=== PATIENT | female | born 1940 | race Caucasian/White ===

== ENCOUNTER 2016-11-22 21:43 | Emergency (ER) | payer MEDICARE, BC ==
[2016-11-22 21:54] VITALS: BP 146/64
--- NOTE | 2016-11-22 22:48 | EDM.PDOC ---
ED HPI GENERAL MEDICAL PROBLEM - General Chief Complaint: Fever Stated Complaint: HAD BACK SURGERY AND NOT FEELING WELL Time Seen by Provider: 11/22/16 21:46 Source of Information: Reports: Patient, Family History Limitations: Reports: No Limitations - History of Present Illness INITIAL COMMENTS - FREE TEXT/NARRATIVE: This is a 76-year-old female. On November 11 she had surgery on her lower back L5- S1 which she had decompression and fusion by Dr. Sosa. There is about a 4 cm laceration in her lower back from that surgery. Apparently that area has been oozing slightly over the last couple of days. This evening she had an episode of severe chilling that lasted approximately 30-40 minutes. Her fever went up to 102 orally. She comes to the ER for evaluation. He says that she's been having some soreness in her calves bilaterally but there's been no swelling and no redness. She also states she's been coughing slightly with some slight phlegm that has been noted. She has not been using a spirometer at home to keep her lungs open. She denies any sore throat she has some mild nausea but no vomiting. She has been eating fairly well. She has had no upper airway congestion. Back Pain Score (Numeric/FACES): 8 - Related Data Allergies Allergy/AdvReac Type Severity Reaction Status Date / Time Cephalosporins Allergy Hives Verified 12/11/15 10:47 Iodinated Contrast- Oral and Allergy Hives Verified 12/11/15 10:47 IV Dye [Iodinated Contrast Media - IV Dye] Home Meds: Home Meds Nortriptyline 25 mg PO BEDTIME 09/12/14 [History] Rosuvastatin [Crestor] 10 mg PO DAILY 09/12/14 [History] Gabapentin [Neurontin] 600 mg PO DAILY tablet 11/21/14 [Rx] Aspirin [Adult Low Dose Aspirin EC] 81 mg PO DAILY 12/11/15 [History] Linagliptin/Metformin Hcl [Jentadueto 2.5 mg-850 mg Tab] 1 tab PO DAILY [History] Losartan/Hydrochlorothiazide [Losartan-HCTZ 100-25 MG] 1 tab PO DAILY 12/11/15 [ History] Baclofen 10 mg PO BID PRN 11/22/16 [History] Celecoxib [CeleBREX] 200 mg PO DAILY 11/22/16 [History] Hydrocodone/Acetaminophen [Hydrocodon-Acetaminophn 10-325] 10 - 325 mg PO ASDIRECTED 11/22/16 [History] tiZANidine [Zanaflex] 4 mg PO ASDIRECTED PRN 11/22/16 [History] traMADol [Ultram] 50 mg PO Q6H PRN 11/22/16 [History] Past Medical History HEENT History: Reports: Allergic Rhinitis Cardiovascular History: Reports: High Cholesterol Gastrointestinal History: Reports: Irritable Bowel Syndrome Other Genitourinary History: bladder repair x 2 Other OB/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 6 VAGINAL BIRTHS, 1 MISCARRIAGE Musculoskeletal History: Reports: Arthritis Endocrine/Metabolic History: Reports: Diabetes, Type II Other Endocrine/Metabolic History: DM type 2 - takes metformin/litagliptin with good effect Checks bs 3 times weekly. On Thursday checks fasting bs, on Thursday before a meal and on Thursday checks 2 hours after a meal. - Past Surgical History HEENT Surgical History: Reports: Cataract Surgery, Tonsillectomy Other Neurological Surgeries/Procedures: HX OF NECK SURGERY; removed a benign nodule by Dr. Beth many years ago Musculoskeletal Surgical History: Reports: Arthroscopic Knee, Shoulder Replacement Social & Family History - Tobacco Use Smoking Status *Q: Never Smoker Second Hand Smoke Exposure: No - Caffeine Use Caffeine Use: Reports: Coffee, Tea - Alcohol Use Days Per Week of Alcohol Use: 1 Number of Drinks Per Day: 1 Total Drinks Per Week: 1 - Recreational Drug Use Recreational Drug Use: No Drug Use in Last 12 Months: No ED ROS GENERAL - Review of Systems Review Of Systems: See Below Constitutional: Reports: Fever, Chills HEENT: Reports: No Symptoms Respiratory: Reports: Shortness of Breath, Cough Cardiovascular: Denies: Chest Pain Endocrine: Reports: No Symptoms GI/Abdominal: Reports: Nausea. Denies: Abdominal Pain, Diarrhea, Vomiting : Reports: No Symptoms Musculoskeletal: Reports: Back Pain, Other (Also some mild drainage from the incision site, mild soreness of her calves bilaterally) Skin: Reports: Other (As per history of present illness) Neurological: Reports: No Symptoms Psychiatric: Reports: No Symptoms Hematologic/Lymphatic: Reports: No Symptoms ED EXAM, SEPSIS - Physical Exam Exam: See Below Exam Limited By: No Limitations General Appearance: Alert, WD/WN, No Apparent Distress Eye Exam: Bilateral Eye: Normal Inspection Ears: Normal External Exam, Normal Canal, Normal TMs Nose: Normal Inspection Throat/Mouth: Normal Inspection, Normal Lips, Normal Oropharynx, Normal Voice, No Airway Compromise Head: Atraumatic, Normocephalic Neck: Supple Respiratory/Chest: No Respiratory Distress, Lungs Clear, Normal Breath Sounds Cardiovascular: Regular Rate, Rhythm, No Murmur GI/Abdominal: Soft, Non-Tender Back: Other (She has limited range of motion due to the surgery, when I evaluate the incision site she is having copious drainage or serosanguineous old type fluid, there is some dehiscence of the incision site at the upper part and also the middle part and it's the upper part of his draining the fluid, the skin edges do not appear to be especially erythematous or red or swollen) Extremities: Normal Inspection, Normal Range of Motion, No Pedal Edema, Other ( She complains of soreness in her calves but no cord is felt there is no redness there is no swelling noted there is no thigh tenderness on palpation). No: Non- Tender Neurological: Alert, Oriented Psychiatric: Normal Affect, Normal Mood Skin: Warm, Dry Course - Vital Signs Last Recorded V/S: Last Vital Signs Temp 100.8 F H 11/22/16 21:53 Pulse 90 11/22/16 21:53 Resp 20 11/22/16 21:53 BP 146/64 H 11/22/16 21:53 Pulse Ox 96 11/22/16 21:53 - Orders/Labs/Meds Orders: Active Orders 24 hr Category Date Time Status Chest 2V [CR] Stat Exams 11/22/16 22:13 Taken CULTURE BLOOD [BC] Stat Lab 11/22/16 22:30 Received CULTURE BLOOD [BC] Stat Lab 11/22/16 22:37 Received CULTURE WOUND [RM] Stat Lab 11/22/16 22:10 Received UA W/MICROSCOPIC [URIN] Stat Lab 11/22/16 22:13 Ordered Clindamycin Phosphate [Cleocin] 900 mg Med 11/23/16 00:58 Ordered Sodium Chloride 0.9% [Normal Saline] 100 ml IV ONETIME Sodium Chloride 0.9% [Normal Saline] 1,000 ml Med 11/22/16 23:22 Active IV ONETIME Blood Culture x2 Reflex Set [OM.PC] Stat Oth 11/22/16 22:21 Ordered Medication Orders Sodium Chloride (Normal Saline) 1,000 mls @ 75 mls/hr IV ONETIME ONE Stop: 11/23/16 12:41 Last Admin: 11/22/16 23:27 Dose: 75 mls/hr Clindamycin Phosphate 900 mg/ (Sodium Chloride) 106 mls @ 100 mls/hr IV ONETIME ONE Stop: 11/23/16 02:01 Labs: Laboratory Tests 11/22/16 11/22/16 11/22/16 Range/Units 22:30 22:30 22:30 WBC 12.78 H (3.98-10.04) K/mm3 RBC 3.58 L (3.98-5.22) M/mm3 Hgb 11.0 L (11.2-15.7) gm/L Hct 33.2 L (34.1-44.9) % MCV 92.7 (79.4-94.8) fl MCH 30.7 (25.6-32.2) pg MCHC 33.1 (32.2-35.5) g/dl RDW Std Deviation 43.5 (36.4-46.3) fL Plt Count 244 (182-369) K/mm3 MPV 9.0 L (9.4-12.3) fl Neut % (Auto) 92.7 H (34.0-71.1) % Lymph % (Auto) 2.7 L (19.3-51.7) % [place] % (Auto) 3.7 L (4.7-12.5) % Eos % (Auto) 0.4 L (0.7-5.8) Baso % (Auto) 0.1 (0.1-1.2) % Neut # (Auto) 11.86 H (1.56-6.13) K/mm3 Lymph # (Auto) 0.34 L (1.18-3.74) K/mm3 [place] # (Auto) 0.47 H (0.24-0.36) K/mm3 Eos # (Auto) 0.05 (0.04-0.36) K/mm3 Baso # (Auto) 0.01 (0.01-0.08) K/mm3 Manual Slide Review Not Reportable Sodium 137 (136-145) mEq/L Potassium 4.2 (3.5-5.1) mEq/L Chloride 102 (98-107) mEq/L Carbon Dioxide 26 (21-32) mEq/L Anion Gap 13.2 (5-15) BUN 24 H (7-18) mg/dL Creatinine 0.9 (0.55-1.02) mg/dL Est Cr Clr Drug Dosing 43.99 mL/min Estimated GFR (MDRD) > 60 (>60) mL/min BUN/Creatinine Ratio 26.7 H (14-18) Glucose 127 H (83-115) mg/dL Lactic Acid 1.2 (0.4-2.0) mmol/L Calcium 8.8 (8.5-10.1) mg/dL Total Bilirubin 0.6 (0.2-1.0) mg/dL AST 15 (15-37) U/L ALT 31 (14-59) U/L Alkaline Phosphatase 78 (46-116) U/L C-Reactive Protein 1.5 H* (<1.0) mg/dL Total Protein 6.7 (6.4-8.2) g/dl Albumin 3.4 (3.4-5.0) g/dl Globulin 3.3 gm/dL Albumin/Globulin Ratio 1.0 (1-2) Meds: Medications Generic Name Dose Route Start Last Admin Trade Name Freq PRN Reason Stop Dose Admin Sodium Chloride 1,000 mls @ 75 mls/hr 11/22/16 23:22 11/22/16 23:27 Normal Saline IV 11/23/16 12:41 75 mls/hr ONETIME ONE Administration Clindamycin Phosphate 900 mg/ 106 mls @ 100 mls/hr 11/23/16 00:58 Sodium Chloride IV 11/23/16 02:01 ONETIME ONE Discontinued Medications Generic Name Dose Route Start Last Admin Trade Name Freq PRN Reason Stop Dose Admin Hydromorphone HCl 0.5 mg 11/22/16 23:21 11/22/16 23:27 Dilaudid IVPUSH 11/22/16 23:22 0.5 mg ONETIME ONE Administration - Radiology Interpretation Free Text/Narrative:: Chest x-ray did not show any acute infiltrates though she might have a smidgen of atelectasis in the left lower lobe - Re-Assessments/Exams Free Text/Narrative Re-Assessment/Exam: 11/23/16 00:59 I spoke to the patient and the family regarding the lab results. We will not get the cultures back for the next 48 hours from the wound as well as blood cultures 2. 11/23/16 01:[address] Sosa at [facility] in [place] and he agrees to accept the patient in transport to their facility for admission and further evaluation. 11/23/16 01:09 Since the patient is allergic to cephalosporins I will give her some clindamycin IV since we are have a wound culture as well as 2 blood cultures drawn. Departure - Departure Time of Disposition: 01:00 Disposition: DC/Tfer to [facility] 02 Condition: Fair Clinical Impression: Febrile illness, acute Infected surgical wound Qualifiers: Encounter type: initial encounter Qualified Code(s): T81.4XXA - Infection following a procedure, initial encounter Leukocytosis Qualifiers: Leukocytosis type: unspecified Qualified Code(s): D72.829 - Elevated white blood cell count, unspecified - Discharge Information Forms: ED Department Discharge Additional Instructions: I spoke to Dr. Sosa at [facility] regarding the patient and the postop wound infection. He agrees to accept the patient in transport to [facility] for admission and further evaluation. ED Communication - ED Communication Date/Time Date: 11/23/16 Time Called: 01:00 - Discussed Case With (1) Discussed Case With (1): Admitting Provider Person/s Notified (1): Selvin Sosa (He accepts the patient in transport) - My Orders Last 24 Hours: My Active Orders 11/22/16 22:10 CULTURE WOUND [RM] Stat 11/22/16 22:13 Chest 2V [CR] Stat UA W/MICROSCOPIC [URIN] Stat 11/22/16 22:21 Blood Culture x2 Reflex Set [OM.PC] Stat 11/22/16 22:30 CULTURE BLOOD [BC] Stat 11/22/16 22:37 CULTURE BLOOD [BC] Stat 11/22/16 23:22 Sodium Chloride 0.9% [Normal Saline] 1,000 ml IV ONETIME 11/23/16 00:58 Clindamycin Phosphate [Cleocin] 900 mg Sodium Chloride 0.9% [Normal Saline] 100 ml IV ONETIME - Assessment/Plan Last 24 Hours: My Active Orders 11/22/16 22:10 CULTURE WOUND [RM] Stat 11/22/16 22:13 Chest 2V [CR] Stat UA W/MICROSCOPIC [URIN] Stat 11/22/16 22:21 Blood Culture x2 Reflex Set [OM.PC] Stat 11/22/16 22:30 CULTURE BLOOD [BC] Stat 11/22/16 22:37 CULTURE BLOOD [BC] Stat 11/22/16 23:22 Sodium Chloride 0.9% [Normal Saline] 1,000 ml IV ONETIME 11/23/16 00:58 Clindamycin Phosphate [Cleocin] 900 mg Sodium Chloride 0.9% [Normal Saline] 100 ml IV ONETIME
[2016-11-22] MEDS ORDERED: HYDROmorphone 0.5 MG/0.5 ML Syringe IVPUSH ONE (23:21)
[2016-11-22] MEDS ORDERED: Sodium Chloride 0.9% 1,000 ML IV ONE (23:22)
[2016-11-23] MEDS ORDERED: Clindamycin Phosphate 900 MG in Sodium Chloride 0.9% 100 ML IV ONE (00:58)
[2016-11-23] MEDS ORDERED: HYDROmorphone 0.5 MG/0.5 ML Syringe ONE (01:21)
[2016-11-23] MEDS ORDERED: HYDROmorphone 0.5 MG/0.5 ML Syringe IVPUSH ONE (01:32)
--- NOTE | 2016-11-24 08:15 | CR ---
Chest: Two views of the chest were obtained. Comparison: Previous chest x-ray of 12/05/14. Heart size is mildly prominent. Slight tortuosity of the thoracic aorta is seen. Lungs are clear with no acute infiltrates. Left shoulder prosthesis is noted. Previous right shoulder surgery is noted. Mild scoliosis present within the spine with scattered degenerative change. Surgical clips are noted from prior cholecystectomy. Impression: 1. Heart size is slightly enlarged as an interval change from prior exam. 2. Other incidental findings. Nothing acute is appreciated. Diagnostic code #2
== END 2016-11-23 01:40 ==
LOC: JD.ED 21:43
DX: T81.4XXA Infection following a procedure, initial encounter (principal); D72.829 Elevated white blood cell count, unspecified; R50.9 Fever, unspecified; Z88.1 Allergy status to other antibiotic agents; Z91.041 Radiographic dye allergy status; Z79.82 Long term (current) use of aspirin; Z79.899 Other long term (current) drug therapy; Z98.49 Cataract extraction status, unspecified eye; Z98.890 Other specified postprocedural states; Z96.619 Presence of unspecified artificial shoulder joint
CPT/HCPCS: 36415; 71020; 80053; 81001; 83605; 85025; 86140; 87040; 87070; 87077; 87186; 96361; 96365; 96375; 96376; 99285; J1170; J7030; J7040; 99284

== ENCOUNTER 2017-01-05 21:46 | Emergency (ER) | payer MEDICARE, BC ==
--- NOTE | 2017-01-05 23:52 | EDM.PDOC ---
ED HPI GENERAL MEDICAL PROBLEM - General Chief Complaint: Fever Stated Complaint: FEVER Time Seen by Provider: 01/05/17 21:54 Source of Information: Reports: Patient, Family, RN Notes Reviewed History Limitations: Reports: No Limitations - History of Present Illness INITIAL COMMENTS - FREE TEXT/NARRATIVE: The patient states that she underwent L5-S1 discectomy and fusion on 11/11/[address] Sosa, at [facility]. She was discharged home, but had to return there for fever and weakness. She was found to have a postoperative infection. She subsequently underwent surgical department and repair of a dural tear on 11/23/2016, 11/24/2016, 12/09/2016, 12/13/2016, 12/16/2016, 12/19/2016, and 2016. She was discharged home this past 01/03/2017. She has subsequently received ertapenem 1 g Q24 hrs and daptomycin 400 mg Q24 hrs via a right upper extremity PICC line on 01/04/2017, and today, 01/05/2017, as directed by Drs. Wilson and Lorie, Infectious Disease at [facility]. The patient states that she developed difficulty walking due to generalized weakness, and chills today. She has been running a fever, to a Tmax of 102.2 at 21:00 tonight. Her back hurts more today than it has recently. These are similar symptoms that put her back in the hospital following her original surgery. No nausea, vomiting, constipation, diarrhea, urinary symptoms, or cough. No headache. Back Pain Score (Numeric/FACES): 6 - Related Data Allergies Allergy/AdvReac Type Severity Reaction Status Date / Time adhesive Allergy Blisters Verified 01/05/17 22:10 Cephalosporins Allergy Hives Verified 12/11/15 10:47 Iodinated Contrast- Oral and Allergy Hives Verified 12/11/15 10:47 IV Dye [Iodinated Contrast Media - IV Dye] Home Meds: Home Meds Nortriptyline 25 mg PO BEDTIME 09/12/14 [History] Rosuvastatin [Crestor] 10 mg PO BEDTIME 09/12/14 [History] Aspirin [Adult Low Dose Aspirin EC] 81 mg PO DAILY 12/11/15 [History] Celecoxib [CeleBREX] 200 mg PO BID 11/22/16 [History] Hydrocodone/Acetaminophen [Hydrocodon-Acetaminophn 10-325] 10 - 325 mg PO ASDIRECTED 11/22/16 [History] tiZANidine [Zanaflex] 4 mg PO Q12HR PRN 11/22/16 [History] traMADol [Ultram] 50 mg PO Q6H PRN 11/22/16 [History] Cholecalciferol (Vitamin D3) [Vitamin D3] 10,000 unit PO DAILY 12/05/16 [History ] Ciprofloxacin HCl 750 mg PO BID 12/05/16 [History] Docusate Sodium [Colace] 100 mg PO DAILY 12/05/16 [History] Ertapenem [INVanz] 1 gm IV DAILY 12/05/16 [History] Gabapentin [Neurontin] 200 mg PO Q8HR 12/05/16 [History] Sennosides [Senna] 8.6 mg PO BID 12/05/16 [History] Vitamin B Complex [B Complex] 1 each PO DAILY 12/05/16 [History] Past Medical History HEENT History: Reports: Allergic Rhinitis Cardiovascular History: Reports: High Cholesterol, Hypertension [employer] History: Reports: : 7 Para: 6 Musculoskeletal History: Reports: Osteoarthritis Endocrine/Metabolic History: Reports: Diabetes, Type II - Past Surgical History HEENT Surgical History: Reports: Cataract Surgery, Tonsillectomy GI Surgical History: Reports: Appendectomy, Cholecystectomy Female Surgical History: Reports: Hysterectomy, Salpingo-Oophorectomy, Other (See Below) (Bladder suspension) Neurological Surgical History: Reports: Lumbar Spine (L5-S1 discectomy and fusion 11/11/2016, with 7 subsequent surgical debridements and repair of dural tear), Other (See Below) (Benign nodule excised from neck) Musculoskeletal Surgical History: Reports: Arthroscopic Knee, Shoulder Replacement, Shoulder Surgery (3 right rotator cuff repairs, 1 left rotator cuff repair + shoulder replacement) Social & Family History - Tobacco Use Smoking Status *Q: Never Smoker Second Hand Smoke Exposure: No - Caffeine Use Caffeine Use: Reports: Coffee - Alcohol Use Alcohol Use History: Yes Days Per Week of Alcohol Use: 1 Number of Drinks Per Day: 1 Total Drinks Per Week: 1 Alcohol Use Frequency: Rarely - Recreational Drug Use Recreational Drug Use: No - Living Situation & Occupation Living situation: Reports: , with Spouse Occupation: Retired ED ROS GENERAL - Review of Systems Review Of Systems: See Below Constitutional: Reports: No Symptoms HEENT: Reports: No Symptoms Respiratory: Reports: No Symptoms Cardiovascular: Reports: No Symptoms Endocrine: Reports: No Symptoms GI/Abdominal: Reports: No Symptoms : Reports: No Symptoms Musculoskeletal: Reports: No Symptoms Skin: Reports: No Symptoms Neurological: Reports: No Symptoms Psychiatric: Reports: No Symptoms Hematologic/Lymphatic: Reports: No Symptoms Immunologic: Reports: No Symptoms ED EXAM, GENERAL - Physical Exam Exam: See Below Exam Limited By: No Limitations General Appearance: Alert, WD/WN, No Apparent Distress Eye Exam: Bilateral Eye: Normal Inspection Ears: Normal External Exam, Hearing Grossly Normal Nose: Normal Inspection, No Blood Throat/Mouth: Normal Inspection, Normal Lips, Normal Voice, No Airway Compromise Head: Atraumatic, Normocephalic Neck: Normal Inspection, Full Range of Motion Respiratory/Chest: No Respiratory Distress, Lungs Clear, Normal Breath Sounds, No Accessory Muscle Use Cardiovascular: Normal Peripheral Pulses, Regular Rate, Rhythm, No Gallop, No JVD, No Murmur, No Rub Peripheral Pulses: 4+: Radial (L), Radial (R) GI/Abdominal: Normal Bowel Sounds, Soft, Non-Tender, No Organomegaly, No Distention, No Abnormal Bruit, No Mass (Female) Exam: Deferred Rectal (Female) Exam: Deferred Back Exam: Other (Lumbar surgical wound appears to be clean, dry, and intact. The patient has limited flexibility of the back, due to pain.) Extremities: Normal Inspection, Normal Range of Motion, No Pedal Edema, Normal Capillary Refill Neurological: Alert, Oriented, Normal Cognition, No Motor/Sensory Deficits Psychiatric: Normal Affect Skin Exam: Warm, Dry, Intact, Normal Color, No Rash Lymphatic: No Adenopathy Course - Vital Signs Last Recorded V/S: Last Vital Signs Temp 37.5 C 01/05/17 21:55 Pulse 98 01/05/17 21:55 Resp 19 01/05/17 21:55 BP 163/66 H 01/05/17 21:55 Pulse Ox 96 01/05/17 21:55 - Orders/Labs/Meds Orders: Active Orders 24 hr Category Date Time Status CBC WITH MANUAL DIFF [HEME] Stat Lab 01/05/17 23:10 Results COMPREHENSIVE METABOLIC PN,CMP [CHEM] Stat Lab 01/05/17 23:10 Received CULTURE BLOOD [BC] Stat Lab 01/05/17 23:10 Received CULTURE BLOOD [BC] Stat Lab 01/05/17 23:20 Received Blood Culture x2 Reflex Set [OM.PC] Stat Oth 01/05/17 22:37 Ordered Labs: Laboratory Tests 01/05/17 Range/Units 23:10 WBC 10.11 H (3.98-10.04) K/mm3 RBC 2.79 L (3.98-5.22) M/mm3 Hgb 7.6 L (11.2-15.7) gm/L Hct 24.3 L (34.1-44.9) % MCV 87.1 (79.4-94.8) fl MCH 27.2 (25.6-32.2) pg MCHC 31.3 L (32.2-35.5) g/dl RDW Std Deviation 48.0 H (36.4-46.3) fL Plt Count 429 H (182-369) K/mm3 MPV 8.6 L (9.4-12.3) fl - Re-Assessments/Exams Free Text/Narrative Re-Assessment/Exam: 01/05/17 23:[address] Payan, Hospitalist at [facility], at 23:30. Dr. East from Orthoopedic Surgery later joined the conference call. Dr. Payan accepts the patient for transfer to their facility. The patient's family would prefer to go by private vehicle; I have no objection. We will fax the CBC and CMP results once available. Departure - Departure Time of Disposition: 23:53 Disposition: DC/Tfer to Acute Hospital 02 Condition: Fair Clinical Impression: Postoperative fever - Discharge Information - My Orders Last 24 Hours: My Active Orders 01/05/17 22:37 Blood Culture x2 Reflex Set [OM.PC] Stat 01/05/17 23:10 CBC WITH MANUAL DIFF [HEME] Stat COMPREHENSIVE METABOLIC PN,CMP [CHEM] Stat CULTURE BLOOD [BC] Stat 01/05/17 23:20 CULTURE BLOOD [BC] Stat - Assessment/Plan Last 24 Hours: My Active Orders 01/05/17 22:37 Blood Culture x2 Reflex Set [OM.PC] Stat 01/05/17 23:10 CBC WITH MANUAL DIFF [HEME] Stat COMPREHENSIVE METABOLIC PN,CMP [CHEM] Stat CULTURE BLOOD [BC] Stat 01/05/17 23:20 CULTURE BLOOD [BC] Stat
[2017-01-06 00:23] VITALS: BP 146/76
== END 2017-01-06 00:40 ==
LOC: JD.ED 21:46
DX: R50.82 Postprocedural fever (principal); E78.00 Pure hypercholesterolemia, unspecified; I10 Essential (primary) hypertension; E11.9 Type 2 diabetes mellitus without complications; M19.90 Unspecified osteoarthritis, unspecified site; Z98.890 Other specified postprocedural states; Z91.041 Radiographic dye allergy status; Z91.048 Other nonmedicinal substance allergy status; Z79.899 Other long term (current) drug therapy; Z79.82 Long term (current) use of aspirin; Z90.49 Acquired absence of other specified parts of digestive tract; Z98.49 Cataract extraction status, unspecified eye; Z90.710 Acquired absence of both cervix and uterus
CPT/HCPCS: 36415; 80053; 85025; 87040; 99284; 99285

== ENCOUNTER 2019-03-29 13:56 | Emergency (ER) | payer MEDICARE, OTHER ==
[2019-03-29 14:08] VITALS: BP 156/61; PULSE 92
--- NOTE | 2019-03-29 14:13 | EDM.PDOC ---
ED HPI GENERAL MEDICAL PROBLEM - General Source of Information: Reports: Patient History Limitations: Reports: No Limitations - History of Present Illness Onset: Today, Sudden Onset Date: 03/29/19 Onset Time: 09:00 <Jing Silver - Last Filed: 03/29/19 14:39> - General Source of Information: Reports: Patient History Limitations: Reports: No Limitations Left Wrist Pain Score (Numeric/FACES): 4 <MaydaEhsan Hogan - Last Filed: 03/29/19 14:47> - General Chief Complaint: Trauma Stated Complaint: L ARM INJURY Time Seen by Provider: 03/29/19 14:06 - History of Present Illness INITIAL COMMENTS - FREE TEXT/NARRATIVE: Patient is a 78-year-old female who presents with left wrist pain and swelling after having a ground-level fall in her garage this morning at approximately 0900. She does have full range of motion of the wrist, however, movement and gripping causes shooting pains up her forearm. She states that she did also hit the right side of her head on the floor, however she states that she " barely tapped it on the floor". She denies any headache, nausea, loss of consciousness or confusion. She does take a daily baby aspirin. (Jing Silver) - Related Data Allergies Allergy/AdvReac Type Severity Reaction Status Date / Time adhesive Allergy Blisters Verified 03/29/19 14:08 Cephalosporins Allergy Hives Verified 03/29/19 14:08 Iodinated Contrast Media Allergy Hives Verified 03/29/19 14:08 [Iodinated Contrast Media - IV Dye] Home Meds: Home Meds Nortriptyline 25 mg PO BEDTIME 09/12/14 [History] Rosuvastatin [Crestor] 10 mg PO BEDTIME 09/12/14 [History] Aspirin [Adult Low Dose Aspirin EC] 81 mg PO DAILY 12/11/15 [History] Cholecalciferol (Vitamin D3) [Vitamin D3] 10,000 unit PO DAILY 12/05/16 [History ] Gabapentin [Neurontin] 200 mg PO Q8HR 12/05/16 [History] Losartan [Cozaar] 0 mg PO DAILY 03/29/19 [History] Past Medical History HEENT History: Reports: Allergic Rhinitis Cardiovascular History: Reports: High Cholesterol, Hypertension Gastrointestinal History: Reports: Irritable Bowel Syndrome Other Genitourinary History: bladder repair x 2 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 6 VAGINAL BIRTHS, 1 MISCARRIAGE Musculoskeletal History: Reports: Osteoarthritis Endocrine/Metabolic History: Reports: Diabetes, Type II Other Endocrine/Metabolic History: DM type 2 - takes metformin/litagliptin with good effect Checks bs 3 times weekly. On Thursday checks fasting bs, on Thursday before a meal and on Thursday checks 2 hours after a meal. - Past Surgical History HEENT Surgical History: Reports: Cataract Surgery, Tonsillectomy GI Surgical History: Reports: Appendectomy, Cholecystectomy Female Surgical History: Reports: Hysterectomy, Salpingo-Oophorectomy, Other (See Below) (Bladder suspension) Neurological Surgical History: Reports: Lumbar Spine (L5-S1 discectomy and fusion 11/11/2016, with 7 subsequent surgical debridements and repair of dural tear), Other (See Below) (Benign nodule excised from neck) Musculoskeletal Surgical History: Reports: Arthroscopic Knee, Shoulder Replacement, Shoulder Surgery (3 right rotator cuff repairs, 1 left rotator cuff repair + shoulder replacement) <Ehsan Ohara - Last Filed: 03/29/19 14:47> Social & Family History - Tobacco Use Smoking Status *Q: Never Smoker - Caffeine Use Caffeine Use: Reports: Coffee - Recreational Drug Use Recreational Drug Use: No - Living Situation & Occupation Living situation: Reports: , with Spouse Occupation: Retired <Ehsan Ohara - Last Filed: 03/29/19 14:47> Review of Systems - Review of Systems Review Of Systems: See Below Constitutional: Reports: No Symptoms Eyes: Reports: No Symptoms. Denies: Blurred Vision, Vision Change Ears: Reports: No Symptoms Nose: Reports: No Symptoms Mouth/Throat: Reports: No Symptoms Respiratory: Reports: No Symptoms Cardiovascular: Reports: No Symptoms GI/Abdominal: Reports: No Symptoms Genitourinary: Reports: No Symptoms Musculoskeletal: Reports: Other (left wrist pain and swelling) Skin: Reports: No Symptoms Neurological: Reports: No Symptoms. Denies: Confusion, Dizziness, Headache, Syncope, Difficulty Walking, Weakness Psychiatric: Reports: No Symptoms. Denies: Confusion <Jing Silver - Last Filed: 03/29/19 14:39> ED EXAM, GENERAL - Physical Exam Exam: See Below Exam Limited By: No Limitations General Appearance: Alert, No Apparent Distress Eye Exam: Bilateral Eye: PERRL Head: Atraumatic, Normocephalic Respiratory/Chest: No Respiratory Distress, Lungs Clear, Normal Breath Sounds Cardiovascular: Normal Peripheral Pulses, Regular Rate, Rhythm, No Edema Extremities: Normal Range of Motion, Other (Swelling to left wrist. Weak grasp limited d/t pain) Neurological: Alert, Oriented, Normal Cognition, No Motor/Sensory Deficits Psychiatric: Normal Affect, Normal Mood Skin Exam: Warm, Dry, Intact, Normal Color <Jing Silver - Last Filed: 03/29/19 14:39> Course <Jing Silver - Last Filed: 03/29/19 14:39> <Ehsan Ohara - Last Filed: 03/29/19 14:47> - Vital Signs Text/Narrative:: Patient is a 78-year-old female who presents with complaints of pain and swelling to her left wrist after having a ground-level fall in her garage around 9:00 this morning. She does have full range of motion in this wrist. However, gripping elicits pain shooting up her forearm. There is a moderate amount of swelling present but no obvious deformity. She does have a pin point abrasion to her right lateral eye which she states is from her glasses when she bumped her head on the floor. She has no neurologic deficits. Her pupils are equal and reactive. She denies headache and nausea. She does have a mild abrasion to her right knee. X-ray of the left forearm is negative for any fractures. Dex wrap was applied to the left wrist. Patient was educated to ice the wrist for 20 minutes every couple hours and to wear the Dex wrap as needed over the next few days. (Jing Silver) Last Recorded V/S: Last Vital Signs Temp 36.2 C 03/29/19 14:03 Pulse 92 03/29/19 14:03 Resp 16 03/29/19 14:03 BP 156/61 H 03/29/19 14:03 Pulse Ox 96 03/29/19 14:03 - Radiology Interpretation Free Text/Narrative:: 78-year-old female presents to the ED after slipping and falling after losing her balance in her garage this morning. She landed on outstretched left hand injuring her left wrist which has become more swollen and painful over the last 3 hours. She fell about 0930 hrs. this morning. She hit the right side of her head with minimal injury building up her glasses and suffering a minimal contusion to the lateral supraorbital ridge of her for her head. She also landed on her right hip but can walk with no pain and she has some bruising on the right lower extremity. Patient was seen in consultation with nurse practitioner Jing Silver. Plan will be for her to have an x-ray of her left forearm. (Ehsan Ohara) - Re-Assessments/Exams Free Text/Narrative Re-Assessment/Exam: 03/29/19 14:46 x-rays of the left forearm reveal marked osteopenia and some degenerative arthritic changes at both the elbow and the wrist but no fractures identified. He will be Dex wrap elevation and ice. Tylenol for pain (Ehsan Ohara) Departure - Departure Time of Disposition: 14:43 Preliminary Cause of *Q: Cardiac Arrest Condition: Good - Discharge Information *PRESCRIPTION DRUG MONITORING PROGRAM REVIEWED*: No *COPY OF PRESCRIPTION DRUG MONITORING REPORT IN PATIENT HERMINIA: No <Jing Silver - Last Filed: 03/29/19 14:39> <Ehsan Ohara - Last Filed: 03/29/19 14:47> - Departure Disposition: Home, Self-Care 01 Clinical Impression: Wrist sprain - Discharge Information Instructions: Wrist Sprain, Adult Referrals: Kirill Henderson MD [Primary Care Provider] - Forms: ED Department Discharge Additional Instructions: You were seen in the emergency department for pain and swelling to your left wrist after a fall this morning. An x-ray was negative for any fractures. Dex wrap was applied to her left wrist and it is recommended that she wear that for comfort over the next week. Ice the area for 20 minutes every couple hours for the next few days. You may use [id number] Tylenol or ibuprofen as needed for pain. Return to the ER with any problems or worsening symptoms
--- NOTE | 2019-03-29 14:40 | CR ---
Left forearm: Two views of the left forearm are obtained. Comparison: No prior forearm study. Slight bony exostosis is noted within the radial tuberosity. This likely represents change from tendon pull. Bony debris is seen around the wrist which is degenerative in etiology. Osteopenia is present. Nothing acute is seen. Impression: 1. Findings as noted above. 2. Nothing acute is seen on left forearm study. Diagnostic code #2
== END 2019-03-29 14:55 | disposition home or self-care (01) ==
LOC: JD.ED 13:56
DX: S63.502A Unspecified sprain of left wrist, initial encounter (principal); I10 Essential (primary) hypertension; E78.00 Pure hypercholesterolemia, unspecified; E11.9 Type 2 diabetes mellitus without complications; Z79.82 Long term (current) use of aspirin; Z91.048 Other nonmedicinal substance allergy status; Z88.8 Allergy status to other drugs, medicaments and biological substances; Z91.041 Radiographic dye allergy status; Z79.899 Other long term (current) drug therapy; W18.39XA Other fall on same level, initial encounter; Y92.59 Other trade areas as the place of occurrence of the external cause
CPT/HCPCS: 73090-26-LT; 73090-LT; 99282; 99283-25

== ENCOUNTER 2020-07-17 09:28 | Day surgery (SDC) | payer MEDICARE, OTHER ==
[~2020-07-17 09:28] MED LIST: Lactated Ringers 1,000 ML IV SCH; Lidocaine 1%/Sod Bicarbonate in NS 8.4% 1 ML Syringe IDERM PRN; Sodium Chloride 0.9% 10 ML Syringe FLUSH PRN
--- NOTE | 2020-07-17 09:52 | PCM.PREANE ---
Preanesthetic Assessment - Procedure Proposed Procedure: screening colonoscopy - Anesthesia/Transfusion/Family Hx Anesthesia History: Prior Anesthesia Without Reaction Family History of Anesthesia Reaction: No Transfusion History: Prior Transfusion Without Reaction - Review of Systems General: No Symptoms Pulmonary: No Symptoms Cardiovascular: No Symptoms Gastrointestinal: No Symptoms Neurological: No Symptoms Other: Reports: Diabetes, Thyroid Problems (being investigated), Depression - Physical Assessment NPO Status Date: 07/16/20 NPO Status Time: 04:30 Vital Signs: 96.7 18 100% 78 139/49 ASA Class: 3 Mental Status: Alert & Oriented x3 Airway Class: Mallampati = 1 Dentition: Reports: Normal Dentition Thyro-Mental Finger Breadths: 3 Mouth Opening Finger Breadths: 3 ROM/Head Extension: Full Lungs: Clear to Auscultation, Normal Respiratory Effort Cardiovascular: Regular Rate, Regular Rhythm - Allergies Allergies/Adverse Reactions: Allergies Allergy/AdvReac Type Severity Reaction Status Date / Time adhesive Allergy Blisters Verified 07/16/20 15:53 Cephalosporins Allergy Hives Verified 07/16/20 15:53 Iodinated Contrast Media Allergy Hives Verified 07/16/20 15:53 [Iodinated Contrast Media - IV Dye] - Blood Blood Available: No - Acknowledgements Anesthesia Type Planned: MAC Pt an Appropriate Candidate for the Planned Anesthesia: Yes Alternatives and Risks of Anesthesia Discussed w Pt/Guardian: Yes Pt/Guardian Understands and Agrees with Anesthesia Plan: Yes PreAnesthesia Questionnaire HEENT History: Reports: Allergic Rhinitis, Impaired Vision, Macular Degeneration, Other (See Below) Other HEENT History: wears glasses, has partial Cardiovascular History: Reports: High Cholesterol, Hypertension Respiratory History: Reports: None Gastrointestinal History: Reports: GERD, Irritable Bowel Syndrome Genitourinary History: Reports: UTI, Recurrent Other Genitourinary History: atrophic vaginitis, cystocele, dysuria, hematuria, rectocele, bateriuria 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 6 VAGINAL BIRTHS, 1 MISCARRIAGE Musculoskeletal History: Reports: Osteoarthritis, Osteoporosis, RA, Other (See Below) Other Musculoskeletal History: patella-femoral syndrome, peroneal tendinitis Neurological History: Reports: Other (See Below) Other Neuro History: compression fracture Psychiatric History: Reports: None Endocrine/Metabolic History: Reports: Diabetes, Type II, Hypothyroidism Other Endocrine/Metabolic History: DM type 2 - takes metformin/litagliptin with good effect Checks bs 3 times weekly. On Thursday checks fasting bs, on Thursday before a meal and on Thursday checks 2 hours after a meal. Hematologic History: Reports: None Immunologic History: Reports: None Oncologic (Cancer) History: Reports: Other (See Below) Other Oncologic History: depression, fatigue Dermatologic History: Reports: None - Infectious Disease History Infectious Disease History: Reports: None - Past Surgical History Head Surgeries/Procedures: Reports: None HEENT Surgical History: Reports: Cataract Surgery, Tonsillectomy Other HEENT Surgeries/Procedures: 2012 cataract surgery Cardiovascular Surgical History: Reports: None Respiratory Surgical History: Reports: None GI Surgical History: Reports: Appendectomy, Cholecystectomy, Colonoscopy Female Surgical History: Reports: Hysterectomy, Salpingo-Oophorectomy, Other (See Below) Male Surgical History: Reports: None Endocrine Surgical History: Reports: None Neurological Surgical History: Reports: Lumbar Spine, Other (See Below) Other Neurological Surgeries/Procedures: HX OF NECK SURGERY; removed a benign nodule by Dr. Beth many years ago, low back surgery Musculoskeletal Surgical History: Reports: Arthroscopic Knee, Shoulder Replacement, Shoulder Surgery Other Musculoskeletal Surgeries/Procedures:: TOTAL L SHOULDER REPLACEMENT, foot surgery, knee surgery Oncologic Surgical History: Reports: None Dermatological Surgical History: Reports: None - SUBSTANCE USE Tobacco Use Status *Q: Never Tobacco User Tobacco Use Within Last Twelve Months: No Second Hand Smoke Exposure: No Days Per Week of Alcohol Use: 0 (seldom) Recreational Drug Use History: No - HOME MEDS Home Medications: Home Meds Nortriptyline 25 mg PO BEDTIME 09/12/14 [History] Aspirin [Adult Low Dose Aspirin EC] 81 mg PO DAILY 12/11/15 [History] Cholecalciferol (Vitamin D3) [Vitamin D3] 1,000 unit PO DAILY 07/16/20 [History] Cyanocobalamin (Vitamin B12) [Vitamin B12] 1,000 mcg PO DAILY 07/16/20 [History] Denosumab [Prolia] 1 dose SQ ASDIRECTED 07/16/20 [History] Diclofenac Sodium [Voltaren 1% Gel] 1 dose TOP QID 07/16/20 [History] Gabapentin [Neurontin] 600 mg PO BEDTIME 07/16/20 [History] Hydroxychloroquine [Plaquenil] 200 mg PO DAILY 07/16/20 [History] Linagliptin/Metformin Hcl [Jentadueto 2.5 mg-500 mg Tab] 2 tab PO DAILY 07/16/20 [History] Losartan [Cozaar] 100 mg PO DAILY 07/16/20 [History] Rosuvastatin [Crestor] 5 mg PO DAILY 07/16/20 [History] Vit A/Vit C/Vit E/Zinc/Copper [Preservision Areds Softgel] 1 cap PO DAILY 07/16/20 [History] estradioL [Estrace 0.01% Vaginal Crm] 1 dose VAG DAILY 07/16/20 [History] hydroCHLOROthiazide [Hydrochlorothiazide] 12.5 mg PO Q48H 07/16/20 [History] - CURRENT (IN HOUSE) MEDS Current Meds: Current Medications Lactated Ringer's (Ringers, Lactated) 1,000 mls @ 125 mls/hr IV ASDIRECTED AGUSTÍN Stop: 07/17/20 23:00 Lidocaine/Sodium Bicarbonate (Buffered Lidocaine 1% In Ns 8.4%) 0.25 ml IDERM ONETIME PRN PRN Reason: Prior to IV Start Stop: 07/17/20 18:00 Sodium Chloride (Saline Flush) 10 ml FLUSH ASDIRECTED PRN PRN Reason: Keep Vein Open Stop: 07/17/20 18:00
[2020-07-17] MEDS ORDERED: Propofol 200 MG/20 ML SDV ONE (10:15)
[2020-07-17] MEDS ORDERED: Lidocaine 1% 4 ML ONE (10:15)
[2020-07-17] MEDS ORDERED: fentaNYL 100 MCG/2 ML SDV ONE (10:16)
--- NOTE | 2020-07-17 11:25 | PCM.PRNOTE ---
- Free Text/Narrative Note: Date: 07/17/2020 Procedure: screening colonoscopy Endoscopist: Pb Cheema Findings: fair prep. Mild inflammatory change in cecum, biopsied. Diverticulosis. Internal hemorrhoids. Detailed Report: The patient was taken to the endoscopy suite and placed in left lateral decubitus position. Timeout was performed and monitored anesthesia care was initiated. Visual inspection of the anus revealed no abnormality. Digital rectal exam was unremarkable. The colonoscope was inserted and advanced all the way to the cecum. The appendiceal orifice was visualized and the ileocecal valve was visualized. Prep was fair, with adherent residue to mucosal surfaces and a fair amount of particulate matter throughout the colon. The scope was slowly withdrawn and mucosal surfaces carefully inspected, using irrigation to obtain optimal visualization. There appeared to be some mild inflammatory changes of the mucosa in the cecum. A sample biopsy was obtained with cold forceps. No polyps were identified. There was a fair amount of diverticular disease mostly within the sigmoid colon. On retroflexion within the rectum, prominent internal hemorrhoidal columns were appreciated, without evidence of prolapse or inflammation. Air was suctioned prior to withdrawal of the scope. The patient tolerated the procedure well.
--- NOTE | 2020-07-17 11:31 | PCM48HPAN ---
Post Anesthesia Note - EVALUATION WITHIN 48HRS OF ANESTHETIC Vital Signs in Normal Range: Yes Patient Participated in Evaluation: Yes Respiratory Function Stable: Yes Airway Patent: Yes Cardiovascular Function Stable: Yes Hydration Status Stable: Yes Pain Control Satisfactory: Yes Nausea and Vomiting Control Satisfactory: Yes Mental Status Recovered: Yes Vital Signs: Last Vital Signs Temp 96.7 F L 07/17/20 09:45 Pulse 78 07/17/20 09:45 Resp 100 H 07/17/20 09:45 BP 139/49 L 07/17/20 09:45 Pulse Ox 1126 117/50 99% 69 14 97.4
[2020-07-17 12:05] VITALS: BP 127/51; PULSE 68
== END 2020-07-17 12:09 | disposition home or self-care (01) ==
LOC: JD.SDS 09:28
PROVIDERS: ATTEND Surgery
DX: K57.30 Diverticulosis of large intestine without perforation or abscess without bleeding (principal); K64.8 Other hemorrhoids; K21.9 Gastro-esophageal reflux disease without esophagitis; E78.00 Pure hypercholesterolemia, unspecified; I10 Essential (primary) hypertension; E11.9 Type 2 diabetes mellitus without complications; E03.9 Hypothyroidism, unspecified; Z80.0 Family history of malignant neoplasm of digestive organs; M81.0 Age-related osteoporosis without current pathological fracture; Z88.1 Allergy status to other antibiotic agents; Z91.041 Radiographic dye allergy status; Z91.09 Other allergy status, other than to drugs and biological substances; Z79.82 Long term (current) use of aspirin; Z79.84 Long term (current) use of oral hypoglycemic drugs; Z79.899 Other long term (current) drug therapy; Z87.891 Personal history of nicotine dependence; Z87.19 Personal history of other diseases of the digestive system; Z87.42 Personal history of other diseases of the female genital tract; Z98.890 Other specified postprocedural states
CPT/HCPCS: 45380; 82962; J2704; J3010; J7120; 00812; 88305

== ENCOUNTER → 2021-02-04 | Day surgery (SDC) | payer MEDICARE, OTHER ==
[~2021-02-04] MED LIST changes: +Acetaminophen/HYDROcodone 325-5 MG Tab PO PRN; +EPINEPHrine 1 MG/ML SDV ONE; +HYDROmorphone 0.5 MG/0.5 ML Syringe IVPUSH PRN; +Lactated Ringers 1,000 ML ONE; +Lidocaine 1% 2 ML ONE; +Lidocaine 1% 4 ML ONE; +Midazolam 1 MG/ML 2 ML SDV ONE; +Ondansetron 4 MG/2 ML SDV IVPUSH PRN; +Ondansetron 4 MG/2 ML SDV ONE; +Propofol 200 MG/20 ML SDV ONE; +Rocuronium 50 MG/5 ML Vial ONE; +Ropivacaine 0.5% 5 MG/ML 30 ML SDV ONE; +ceFAZolin 1 GM Vial ONE; +fentaNYL 100 MCG/2 ML SDV IVPUSH PRN; +fentaNYL 100 MCG/2 ML SDV ONE
--- NOTE | 2021-02-04 07:10 | PCM.PREANE ---
Preanesthetic Assessment - Anesthesia/Transfusion/Family Hx Anesthesia History: Prior Anesthesia Without Reaction Family History of Anesthesia Reaction: No Transfusion History: Prior Transfusion Without Reaction - Review of Systems General: No Symptoms Cardiovascular: Other (HTN) Gastrointestinal: Other (GERD) Neurological: Other (dm2, orals) Other: Reports: Diabetes, Thyroid Problems (hypothyroidism, with thyroid nodules), Depression - Physical Assessment NPO Status Date: 02/03/21 NPO Status Time: 22:00 ASA Class: 3 Mental Status: Alert & Oriented x3 Dentition: Reports: Normal Dentition Thyro-Mental Finger Breadths: 3 Mouth Opening Finger Breadths: 3 ROM/Head Extension: Full Lungs: Clear to Auscultation, Normal Respiratory Effort Cardiovascular: Regular Rate, Regular Rhythm - Imaging/EKG Impressions: EKG SR with borderline LAD - Allergies Allergies/Adverse Reactions: Allergies Allergy/AdvReac Type Severity Reaction Status Date / Time adhesive Allergy Blisters Verified 02/02/21 12:06 Cephalosporins Allergy Hives Verified 02/02/21 12:06 Iodinated Contrast Media Allergy Hives Verified 02/02/21 12:06 [Iodinated Contrast Media - IV Dye] - Blood Blood Available: No Product(s) Available: None - Anesthesia Plan Pre-Op Medication Ordered: None - Acknowledgements Anesthesia Type Planned: General Anesthesia Pt an Appropriate Candidate for the Planned Anesthesia: Yes Alternatives and Risks of Anesthesia Discussed w Pt/Guardian: Yes Pt/Guardian Understands and Agrees with Anesthesia Plan: Yes PreAnesthesia Questionnaire HEENT History: Reports: Allergic Rhinitis, Macular Degeneration Other HEENT History: wears glasses, has partial, has hearing aids Cardiovascular History: Reports: High Cholesterol, Hypertension Respiratory History: Reports: None Gastrointestinal History: Reports: GERD, Irritable Bowel Syndrome Genitourinary History: Reports: UTI, Recurrent Other Genitourinary History: bacteruria, cystocele, rectocele, dysuria, mirian turia, renal lesion 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 6 VAGINAL BIRTHS, 1 MISCARRIAGE, atrophic vaginitis, vaginal pruritis Musculoskeletal History: Reports: Arthritis, Back Pain, Chronic, Osteoarthritis, Osteoporosis Other Musculoskeletal History: patella-femoral syndrome, peroneal tendinitis Neurological History: Other Neuro History: compression fracture Psychiatric History: Reports: None Endocrine/Metabolic History: Reports: Diabetes, Type II, Hypothyroidism Other Endocrine/Metabolic History: DM type 2 - takes metformin/litagliptin with good effect Checks bs 3 times weekly. On Thursday checks fasting bs, on Thursday before a meal and on Thursday checks 2 hours after a meal. Hematologic History: Reports: None Immunologic History: Reports: None Oncologic (Cancer) History: Reports: None Other Oncologic History: depression, fatigue Dermatologic History: Reports: None - Infectious Disease History Infectious Disease History: Reports: None - Past Surgical History Head Surgeries/Procedures: Reports: None HEENT Surgical History: Reports: Cataract Surgery, Tonsillectomy Other HEENT Surgeries/Procedures: 2012 cataract surgery Cardiovascular Surgical History: Reports: None Respiratory Surgical History: Reports: None GI Surgical History: Reports: Appendectomy, Cholecystectomy Female Surgical History: Reports: Hysterectomy, Salpingo-Oophorectomy, Other (See Below) Other Female Surgeries/Procedures: bladder repair x 2 Male Surgical History: Reports: None Endocrine Surgical History: Reports: None Neurological Surgical History: Reports: Lumbar Spine, Other (See Below) Other Neurological Surgeries/Procedures: HX OF NECK SURGERY; removed a benign nodule by Dr. Beth many years ago Musculoskeletal Surgical History: Reports: Arthroscopic Knee, Shoulder Replacement, Shoulder Surgery Other Musculoskeletal Surgeries/Procedures:: TOTAL L SHOULDER REPLACEMENT, foot surgery, knee surgery Oncologic Surgical History: Reports: None Dermatological Surgical History: Reports: None - SUBSTANCE USE Tobacco Use Status *Q: Former Tobacco User Recreational Drug Use History: No - HOME MEDS Home Medications: Home Meds Nortriptyline 25 mg PO BEDTIME 09/12/14 [History] Cholecalciferol (Vitamin D3) [Vitamin D3] 1,000 unit PO DAILY 07/16/20 [History] Denosumab [Prolia] 1 dose SQ ASDIRECTED 07/16/20 [History] Gabapentin [Neurontin] 600 mg PO BEDTIME 07/16/20 [History] Hydroxychloroquine [Plaquenil] 200 mg PO DAILY 07/16/20 [History] Linagliptin/Metformin Hcl [Jentadueto 2.5 mg-500 mg Tab] 2 tab PO DAILY 07/16/20 [History] Losartan [Cozaar] 100 mg PO DAILY 07/16/20 [History] Rosuvastatin [Crestor] 5 mg PO DAILY 07/16/20 [History] Vit A/Vit C/Vit E/Zinc/Copper [Preservision Areds Softgel] 1 cap PO DAILY 07/16/20 [History] estradioL [Estrace 0.01% Vaginal Crm] 1 dose VAG DAILY 07/16/20 [History] hydroCHLOROthiazide [Hydrochlorothiazide] 12.5 mg PO DAILY 07/16/20 [History] Aspirin [Aspirin EC] 325 mg PO DAILY #40 tablet. 02/01/21 [Rx] Hydrocodone/Acetaminophen [HYDROcodone-Acetaminophen 5-325 MG] 1 - 2 each PO Q6H PRN #40 tablet 02/01/21 [Rx] Acetaminophen [Tylenol Arthritis Pain] 650 mg PO TID PRN 02/02/21 [History] Aspirin 81 mg PO DAILY 02/02/21 [History] traMADol [Ultram] 50 - 100 mg PO TID PRN 02/02/21 [History] - CURRENT (IN HOUSE) MEDS Current Meds: Current Medications Hydrocodone Bitart/Acetaminophen (Acetaminophen/Hydrocodone 325-5 Mg Tab) 1 - 2 tab PO ONETIME PRN PRN Reason: post op pain control Stop: 02/04/21 16:00 Lactated Ringer's (Ringers, Lactated) 1,000 mls @ 125 mls/hr IV ASDIRECTED AGUSTÍN Stop: 02/04/21 23:00 Lidocaine/Sodium Bicarbonate (Lidocaine 1%/Sod Bicarbonate In Ns 8.4% 1 Ml Syringe) 0.25 ml IDERM ONETIME PRN PRN Reason: Prior to IV Start Stop: 02/04/21 18:00 Sodium Chloride (Sodium Chloride 0.9% 10 Ml Syringe) 10 ml FLUSH ASDIRECTED PRN PRN Reason: Keep Vein Open Stop: 02/04/21 18:00 Discontinued Medications Epinephrine HCl (Epinephrine 1 Mg/Ml Sdv) Confirm Administered Dose 1 mg .ROUTE .STK-MED ONE Stop: 02/04/21 07:02 Lidocaine HCl (Xylocaine-Mpf 1%) Confirm Administered Dose 2 mls @ as directed .ROUTE .STK-MED ONE Stop: 02/04/21 07:01 Ropivacaine (Ropivacaine 0.5% 5 Mg/Ml 30 Ml Sdv) Confirm Administered Dose 30 ml .ROUTE .STK-MED ONE Stop: 02/04/21 07:02
--- NOTE | 2021-02-04 07:11 | PCM.SN.2 ---
- Free Text/Narrative Note: Anesthesia Note: Time Out: 722 Start: 722 Stop: 740 Current Procedure: Right interscalene block under US guidance for postoperative pain control requested by Dr. Case. Patient chart reviewed, risk/benefits discussed with patient, consent obtained. Patient positioned supine, monitors/alarms on, oxygen placed via nasal cannula at 2 LPM. IV sedation administered: Versed 2mg IV, Fentanyl 50mcg IV given in preop prior to block placement. Right shoulder prepped with two chloropreps. Sterile drapes placed with aseptic technique noted. Under US guidance, right subclavian artery visualized along with the right brachial plexus. Plexus followed up to C6 cricoid level, and area localized with 2mls of 1% lidocaine. 22gauge 2 inch stimiplex needle advanced under US with 0.6mV with stimulation of biceps noted. Good stimulation noted with decreased voltage and absent at 0.3mVs. 1ml of Normal Saline injected with loss of stimulation noted to confirm needle not placed intraneurally. Incremental dosing of 5mls with negative aspiration noted prior to each injection of 0.5% ropivacaine with 1:200,000 epinephrine. Total volume=30mls. Please refer to nurses noted for vital signs. Lisette Reyna CRNA Time Documentation
[2021-02-04] MEDS: Vancomycin 1 GM SDV ONE ×2 (09:41→10:18)
--- NOTE | 2021-02-04 10:45 | PCM.POSTAN ---
POST ANESTHESIA ASSESSMENT - MENTAL STATUS Mental Status: Alert, Oriented - VITAL SIGNS Vital Signs: Last Vital Signs Temp 36.3 C 02/04/21 07:15 Pulse 71 02/04/21 07:15 Resp 16 02/04/21 07:15 BP 139/53 L 02/04/21 07:15 Pulse Ox 94 L 02/04/21 07:15 - RESPIRATORY Respiratory Status: Respiratory Rate WNL, Airway Patent, O2 Saturation Stable, Supplemental Oxygen - CARDIOVASCULAR CV Status: Pulse Rate WNL, Blood Pressure Stable - GASTROINTESTINAL GI Status: No Symptoms - PAIN Pain Score: 0 - POST OP HYDRATION Hydration Status: Adequate & Stable
--- NOTE | 2021-02-04 11:23 | CR ---
Right shoulder: 3 fluoroscopic spot views were obtained of the right shoulder utilizing C-arm device in the operating suite. Comparison: No previous right shoulder study is available. Right shoulder prosthesis placement is noted. Components appear aligned. Fluoroscopy time is given as 8.2 seconds. Impression: 1. Procedural study as described above. Diagnostic code #2
--- NOTE | 2021-02-04 12:18 | CR ---
Right shoulder: Single AP view of the right shoulder was obtained. Comparison: Previous operative study performed on the same day (10:09 AM). Right shoulder prosthesis is seen. Components are aligned. Prior resection of the distal right clavicle is noted. No additional abnormality is seen. Impression: 1. Satisfactory postoperative radiographic appearance of recently placed right shoulder prosthesis. Diagnostic code #2
--- NOTE | 2021-02-04 14:00 | PCM48HPAN ---
Post Anesthesia Note - EVALUATION WITHIN 48HRS OF ANESTHETIC Vital Signs in Normal Range: Yes Patient Participated in Evaluation: Yes Respiratory Function Stable: Yes Airway Patent: Yes Cardiovascular Function Stable: Yes Hydration Status Stable: Yes Pain Control Satisfactory: Yes Nausea and Vomiting Control Satisfactory: Yes Mental Status Recovered: Yes Vital Signs: Last Vital Signs Temp 36.6 C 02/04/21 11:30 Pulse 67 02/04/21 12:00 Resp 18 02/04/21 12:00 BP 120/52 L 02/04/21 12:00 Pulse Ox 92 L 02/04/21 12:00
[2021-02-04 14:23] VITALS: BP 122/54; PULSE 72
--- NOTE | 2021-02-14 07:32 | PCM.OPNOTE ---
- General Post-Op/Procedure Note Date of Surgery/Procedure: 02/04/21 Operative Procedure(s): right reverse total shoulder arthroplasty Pre Op Diagnosis: right shoulder rotator cuff tear arthropathy Post-Op Diagnosis: Same Anesthesia Technique: General ET Tube, Regional Block Primary Surgeon: Norris Case Anesthesia Provider: Kathie Shields Cinder Block Mason: Janis Dominguez Cinder Block Mason: Vane Case EBL in mLs: 250 Complications: None Condition: Good Free Text/Narrative:: 9 stem 28 baseplate 32+2 4mm poly
--- NOTE | 2021-02-18 08:49 | OR ---
DATE OF OPERATION: 02/04/2021 SURGEON: Norris Case MD OPERATION PERFORMED: Right reverse total shoulder arthroplasty. PREOPERATIVE DIAGNOSIS: Right shoulder rotator cuff tear arthropathy. POSTOPERATIVE DIAGNOSIS: Right shoulder rotator cuff tear arthropathy. ANESTHESIA: General endotracheal intubation with regional interscalene block. ANESTHESIA PROVIDER: Kathie Shields. ASSISTANTS: Janis Dominguez PA-C and Vane Case RN. ESTIMATED BLOOD LOSS: 250 mL. COMPLICATIONS: None. CONDITION: Stable. IMPLANTS: 1. Rosie size 9 reverse humeral stem. 2. Rosie size 28 mm concentric base plate. 3. Franklin size 32, +2 glenosphere. 4. Rosie size 4 mm polyethylene. DESCRIPTION OF PROCEDURE: The patient was identified in the preoperative holding area. Proper site was marked and identified by surgeon. The patient was taken back to the operating theater where after adequate anesthesia, the patient's right upper extremity was sterilely prepped and draped in the usual sterile fashion. OR time-out was performed. The patient received 2 g IV Ancef. The patient was placed in reverse Trendelenburg. Standard deltopectoral incision was made. Cephalic vein was identified and was retracted laterally with the deltoid. Clavipectoral fascia was incised. Conjoined tendon was retracted medially. Anterior humeral circumflex vessels were ligated. Biceps tendon was identified and was already torn and was scarred in the subpectoralis region. At this time, takedown of what was remaining of the subscapularis tendon was done, and the humeral head was dislocated. Neck cut was completed and found to be adequate. All osteophytes were removed. Attention was turned to the glenoid. Anterior and posterior glenoid retractors were placed. Circumferential removal of the labrum as well as a partial capsulectomy was done at this time. The patient then had a guide pin placed in a center-center position, and 28 mm reamer was utilized on the glenoid making sure there was good bleeding cancellous bone. Concentric 28 mm base plate was then placed with a central compression screw with good compression, and inferior and superior locking screws were then placed and found to be in adequate position. At this time, a 32, +6 glenosphere was then impacted into place and attention was turned to the humerus. The starter awl was placed down the canal. I was able to broach up to a size 9, which was found to be rotationally and vertically stable. The patient was noted to have fairly good bone. A +4 trial was placed, and at this time, it was found that it was too much tension, so I had to take the 32, +6 glenosphere off and go to a 32, +2. The new glenosphere was impacted into place, and trial was done again with a 4 mm trial poly. The patient had good tension on the deltoid as well as conjoined tendon with no over tensioning, and I was able to reduce it fairly easily. At this time, C-arm fluoroscopy showed the implants to be in good position. Trial implants were then removed. Size 9 humeral stem with a 4 mm poly was then constructed on the back table and impacted into the humerus and was reduced. C-arm fluoroscopy again showed no fractures and well-aligned components. 1 L of pulse lavage irrigation with Ancef was irrigated through the shoulder as well as 400 mL of IrriSept irrigation. Topical tranexamic acid and vancomycin powder were applied. 2-0 Vicryl was used subcutaneously, and Prineo was used for skin closure. The patient was placed in a sterile soft dressing and a pillow sling, sent to PACU in stable condition. KATIUSKA /[id number]
== END | disposition home or self-care (01) ==
LOC: JD.SDS 06:51
PROVIDERS: ATTEND Orthopaedic Surgery
DX: M19.011 Primary osteoarthritis, right shoulder (principal); M75.101 Unspecified rotator cuff tear or rupture of right shoulder, not specified as traumatic; K21.9 Gastro-esophageal reflux disease without esophagitis; I10 Essential (primary) hypertension; E78.5 Hyperlipidemia, unspecified; M81.0 Age-related osteoporosis without current pathological fracture; E11.9 Type 2 diabetes mellitus without complications; G89.18 Other acute postprocedural pain; E78.00 Pure hypercholesterolemia, unspecified; E03.9 Hypothyroidism, unspecified; Z91.041 Radiographic dye allergy status; Z88.8 Allergy status to other drugs, medicaments and biological substances; Z79.899 Other long term (current) drug therapy; Z79.82 Long term (current) use of aspirin; Z90.49 Acquired absence of other specified parts of digestive tract; Z98.890 Other specified postprocedural states; Z87.891 Personal history of nicotine dependence
CPT/HCPCS: 23472; 73020; 76000; 82947; 97161; A9270; C1713; C1769; C1776; J0171; J0690; J2250; J2370; J2405; J2704; J2710; J2795; J3010; J3370; J7120; 01638; 64415; 76942; 99100

== ENCOUNTER 2022-03-24 16:45 | Emergency (ER) | payer MEDICARE, OTHER ==
[2022-03-24 17:04] VITALS: BP 175/75; PULSE 86
[2022-03-24 19:10] LABS: ESTIMATED GFR 64 mL/min (>60)
[2022-03-24 20:29] LABS: CORONAVIRUS COVID-19 NAA NEGATIVE (NEGATIVE)
== END 2022-03-24 20:32 | disposition home or self-care (01) ==
LOC: JD.ED 16:45
DX: I11.9 Hypertensive heart disease without heart failure (principal); R42 Dizziness and giddiness; R11.0 Nausea; E78.00 Pure hypercholesterolemia, unspecified; I10 Essential (primary) hypertension; E11.9 Type 2 diabetes mellitus without complications; Z91.048 Other nonmedicinal substance allergy status; Z88.1 Allergy status to other antibiotic agents; Z91.041 Radiographic dye allergy status; Z79.899 Other long term (current) drug therapy; Z79.82 Long term (current) use of aspirin; Z90.49 Acquired absence of other specified parts of digestive tract; Z20.822 Contact with and (suspected) exposure to COVID-19
CPT/HCPCS: 0241U; 36415; 80053; 81001; 84484; 85025; 85379; 86140; 93005; 99284

== ENCOUNTER 2023-01-12 13:38 | Emergency (ER) | payer MEDICARE ==
[2023-01-12] MEDS ORDERED: Ondansetron 4 MG/2 ML SDV IVPUSH ONE (15:12)
[2023-01-12] MEDS ORDERED: Lactated Ringers 1,000 ML IV SCH (15:15)
[2023-01-12 16:07] LABS: BASOPHILS PERCENT AUTO 0.4 % (0.0-1.0); EOSINOPHILS ABSOLUTE AUTO 0.2 K/mm3 (0.0-0.4); HEMATOCRIT 34.2 % (37.0-47.0); HEMOGLOBIN 11.5 gm/dl (12.0-16.0); IMMATURE GRAN ABSOLUTE AUTO 0.02 K/mm3 (0.00-0.05); IMMATURE GRAN PERCENT AUTO 0.3 % (0.0-0.4); LYMPHOCYTES ABSOLUTE AUTO 1.3 K/mm3 (1.0-4.8); LYMPHOCYTES PERCENT AUTO 17.2 % (24.0-44.0); MEAN CORPUSCULAR HEMOGLOBIN 30.5 pg (28.0-32.0); MEAN CORPUSCULAR HGB CONC 33.6 g/dl (32.0-36.0); MEAN CORPUSCULAR VOLUME 90.7 fl (83.0-99.0); MEAN PLATELET VOLUME 8.8 fl (9.4-12.3); MONOCYTES ABSOLUTE AUTO 0.6 K/mm3 (0.0-0.8); MONOCYTES PERCENT AUTO 8.2 % (0.0-8.0); NEUTROPHILS ABSOLUTE AUTO 5.2 K/mm3 (1.8-7.7); NEUTROPHILS PERCENT AUTO 70.9 % (41.0-71.0); PLATELET COUNT,PLT 240 K/mm3 (150-400); RED BLOOD CELL COUNT 3.77 M/mm3 (4.10-5.30); WHITE BLOOD CELL COUNT,WBC 7.31 K/mm3 (3.9-11.3)
[2023-01-12 16:36] LABS: ALBUMIN 3.2 g/dl (3.4-5.0); ANION GAP 13.3 (5-15); BILIRUBIN TOTAL 0.2 mg/dL (0.2-1.0); CALCIUM 8.7 mg/dL (8.5-10.1); EST CRCL DRUG DOSING (CG) 32.73 mL/min; MAGNESIUM 1.9 mg/dL (1.8-2.4); POTASSIUM,K 4.3 mEq/L (3.5-5.1); PROTEIN TOTAL,TP 6.4 g/dl (6.4-8.2)
[2023-01-12 18:12] VITALS: BP 158/57; PULSE 73
== END 2023-01-12 17:51 | disposition home or self-care (01) ==
LOC: JD.ED 13:38
DX: D64.9 Anemia, unspecified (principal); R19.8 Other specified symptoms and signs involving the digestive system and abdomen; E78.00 Pure hypercholesterolemia, unspecified; I10 Essential (primary) hypertension; E11.9 Type 2 diabetes mellitus without complications; Z86.16 Personal history of COVID-19; Z91.09 Other allergy status, other than to drugs and biological substances; Z88.8 Allergy status to other drugs, medicaments and biological substances; Z91.041 Radiographic dye allergy status; Z88.1 Allergy status to other antibiotic agents; Z79.899 Other long term (current) drug therapy; Z79.82 Long term (current) use of aspirin; Z87.891 Personal history of nicotine dependence; Z20.822 Contact with and (suspected) exposure to COVID-19
CPT/HCPCS: 36415; 80053; 83690; 83735; 84484; 85025; 93005; 99284; U0002; 93010

== ENCOUNTER 2023-12-12 17:01 | Emergency (ER) | payer MEDICARE, OTHER ==
[2023-12-12] MEDS ORDERED: Acetaminophen 325 MG Tab PO ONE (17:31)
[2023-12-12 19:11] VITALS: BP 138/74; PULSE 70
== END 2023-12-12 19:00 | disposition home or self-care (01) ==
LOC: JD.ED 17:01
DX: S46.012A Strain of muscle(s) and tendon(s) of the rotator cuff of left shoulder, initial encounter (principal); M25.522 Pain in left elbow; I10 Essential (primary) hypertension; E11.9 Type 2 diabetes mellitus without complications; Z86.16 Personal history of COVID-19; Z90.49 Acquired absence of other specified parts of digestive tract; Z90.710 Acquired absence of both cervix and uterus; Z79.899 Other long term (current) drug therapy; Z79.82 Long term (current) use of aspirin; E78.00 Pure hypercholesterolemia, unspecified; Z88.8 Allergy status to other drugs, medicaments and biological substances; Z91.048 Other nonmedicinal substance allergy status; X58.XXXA Exposure to other specified factors, initial encounter
CPT/HCPCS: 73030-26-LT; 73030-LT; 73060-26-LT; 73060-LT; 73080-26-LT; 73080-LT; 99283